=== PATIENT | female | born 1985 | race Caucasian/White ===

== ENCOUNTER → 2016-07-01 | Outpatient (CLI) | payer OTHER ==
[2016-07-01 12:46] LABS: BASO % 0.2 %; BASO ABS # 0.01 K/uL (0-0.2); COMPLETE YES; EOS % 1.3 %; IG% 0.2 %; LYMPH % 28.6 %; LYMPH ABS # 1.73 K/uL (1.2-3.4); MEAN CORPUSCULAR HGB CONC 35.6 g/dl (32-36); MEAN PLATELET VOLUME 10.2 fL (7.4-10.4); MONO % 7.9 %; NEUT % 61.8 %; PLATELET COUNT 232 K/uL (130-400); RED BLOOD COUNT 4.71 M/uL (4.2-5.4); WHITE BLOOD COUNT 6.04 K/uL (4.8-10.8)
[2016-07-01 13:30] LABS: ALT/SGPT 24 U/L (12-78); AST/SGOT 14 U/L (15-37); BLOOD UREA NITROGEN 13 mg/dl (7-18); BUN/CREATININE RATIO 15.5 (10-20); CALCIUM 9.2 mg/dl (8.5-10.1); CARBON DIOXIDE 28 mmol/L (21-32); CHLORIDE 106 mmol/L (98-107); CHOLESTEROL 140 mg/dl (0-200); CREATININE 0.85 mg/dl (0.60-1.20); GLUCOSE 78 mg/dl (70-99); POTASSIUM 3.8 mmol/L (3.5-5.1); SODIUM 141 mmol/L (136-145)
[2016-07-01 13:40] LABS: ALB/GLOB RATIO 1.1 (0.9-2); ALKALINE PHOSPHATASE 59 U/L (45-117); CHOLESTEROL/HDL RATIO 2.5; HDL CHOLESTEROL 56 mg/dl; LDL CHOLESTEROL CALCULATED 76 mg/dl; THYROID STIMULATING HORMONE 0.907 uIu/ml (0.300-4.500); TRIGLYCERIDES 38 mg/dl (0-150); VERY LOW DENSITY LIPOPROT CALC 8 mg/dl
== END | disposition home or self-care (01) ==
LOC: C.LABPBG 11:21
PROVIDERS: ATTEND Neuromusculoskeletal Medicine & OMM
DX: Z00.00 Encounter for general adult medical examination without abnormal findings (principal)

== ENCOUNTER → 2016-07-09 | Outpatient (CLI) | payer OTHER | END | disposition home or self-care (01) | LOC: C.PAPS 14:07 | PROVIDERS: ATTEND Physician Assistant | DX: Z12.4 Encounter for screening for malignant neoplasm of cervix (principal); R87.616 Satisfactory cervical smear but lacking transformation zone; Z87.42 Personal history of other diseases of the female genital tract ==

== ENCOUNTER → 2017-11-17 | Outpatient (CLI) | payer OTHER | END | disposition home or self-care (01) | LOC: C.LABSPEC 14:02 | PROVIDERS: ATTEND Neuromusculoskeletal Medicine & OMM | DX: R39.9 Unspecified symptoms and signs involving the genitourinary system (principal) ==

== ENCOUNTER 2019-06-09 03:55 | Inpatient (IN) ==
[2019-06-09] MEDS ORDERED: PENICILLIN G POTASSIUM 6 MU in DEXTROSE 5% 250 ML IV STA (04:22)
[2019-06-09] MEDS ORDERED: OXYTOCIN 30 UNITS/500 ML BAG IV PRN ×3 (04:22→22:14)
[2019-06-09 04:53] LABS: Hematocrit (blood only) 32.6 % (37-47); Hemoglobin 10.6 g/dL (12.0-16.0); Mean Corpuscular Hemoglobin 26.5 pg (25-34); Mean Corpuscular Volume 81.5 fL (80-100); Mean Platelet Volume 9.9 fL (7.4-10.4); Platelet Count 238 K/uL (130-400); RDW Standard Deviation 44.3 fL (36.4-46.3); White Blood Count 13.47 K/uL (4.8-10.8)
[2019-06-09 04:55] LABS: Mean Corpuscular Hgb Conc 32.5 g/dL (32-36)
--- NOTE | 2019-06-09 08:27 | Anesthesiology Consultation ---
Date of Service June 09, 2019 Assessment & Plan (1) Encounter for pre-operative examination: Chart Review Chart Review: Acceptable Risk for Labor Epidural History Height/Weight Height: 5 ft 3 in Weight: 84.822 kg Allergies Allergy/AdvReac Type Severity Reaction Status Date / Time No Known Drug Allergies Allergy NKA Verified 06/09/19 04:19 Medications Home Medications Medication Instructions Recorded Confirmed Last Taken prenat.vits,hugo,rns-rueg-jrcwk 1 tab PO DAILY 11/18/18 06/09/19 06/08/19 04:00 Past Medical History Medical History (Updated 06/09/19 @ 08:27 by Ward Torres MD) No significant medical problems Past Family History Family History Mother Anxiety Deep vein thrombosis Depression Father Asthma Gallbladder disease Silicosis Grandmother Heart disease Hypertension Osteoporosis Grandfather Hypertension Myocardial infarction Uncle Prostate cancer Aunt Pancreatic cancer Denies family history of Ovarian cancer Breast cancer Colorectal cancer Past Surgical History Surgical History History of oral surgery Hx of tonsillectomy Social History Smoking Status: Never smoker Hx Alcohol Use: No Hx Substance Use: No substance use type: does not use Physical Exam Vital Signs Last Vital Signs Temp 36.7 C 06/09/19 07:30 Pulse 83 06/09/19 07:30 Resp 20 06/09/19 07:30 BP 110/60 06/09/19 07:30 Testing Laboratory Results 06/09/19 04:37
--- NOTE | 2019-06-09 08:40 | History & Physical Report ---
Date of Service June 09, 2019 Assessment & Plan (1) Normal labor: IUP at term with PSPROM for possibly 18 hours. PCNG hsa been started patient requesting epidural now anticipate vaginal . History of Present Illness Primary Care Provider: NO PCP Patient is a 33 yo white female who presents at 39 weeks with leaking fluid off & on since about 10 am yesterday then began to have regular contractions 3- 5 minutes apart at 0200 last night. fluid has been clear. GBS(+) no fever or chills. baby has continued to be active. was otherwise uncomplicated. Allergies Allergy/AdvReac Type Severity Reaction Status Date / Time No Known Drug Allergies Allergy NKA Verified 06/09/19 04:19 Home Medications Home Medications Medication Instructions Recorded Confirmed Type prenat.vits,hugo,igi-pmte-hxdew 1 tab PO DAILY 11/18/18 06/09/19 History Patient History Medical History (Updated 06/09/19 @ 08:50 by Laura White MD, FACOG) No significant medical problems Surgical History History of oral surgery Hx of tonsillectomy Family History Mother Anxiety Deep vein thrombosis Depression Father Asthma Gallbladder disease Silicosis Grandmother Heart disease Hypertension Osteoporosis Grandfather Hypertension Myocardial infarction Uncle Prostate cancer Aunt Pancreatic cancer Denies family history of Ovarian cancer Breast cancer Colorectal cancer Social History (Updated 11/24/18 @ 15:13 by Arleen Adamson) Preferred Language: Luxembourger Communication Ability: Effective Beliefs That Will Affect Care: None marital status: Single Current Living Situation: Significant Other current occupational status: employed Other Information That Helps Us Care for You: No Feels Safe at Home: Yes Safety Concerns: Feels Safe At This Time Smoking Status: Never smoker Hx Alcohol Use: No Hx Substance Use: No Dental Care, Regularly: Yes Physical Activity Frequency: 3-4 Times per Week Review of Systems All systems reviewed & are unremarkable except as noted in HPI & below Physical Exam Constitutional: WD/WN, vitals as above Respiratory: normal respiratory effort, lungs clear to auscultation Cardiovascular: RRR, no murmur, no edema Gastrointestinal (Abdomen): normal bowel sounds, soft, nontender, no hepatosplenomegaly Psychiatric: A+Ox3, euthymic affect Genitourinary: OB Exam Abdomen: + vertex and + regular contractions Manual OB Exam: + cervical dilation 4 cm, + cervical effacement 100%, + station -1 and + amniotic fluid clear and nitrazine positive OB Exam Monitor Tracing: + external FHT monitor used, + external uterine monitor used, + category I and + normal FHT variability Results & Data Vital Signs (Past 12 Hours) Vital Signs Temp Pulse Resp BP 06/09/19 07:30 98.1 F 83 20 110/60 06/09/19 06:18 97.9 F 86 18 112/62 06/09/19 04:17 98.1 F 86 18 130/69 Coding Level of Care Code None Diagnoses Normal labor O80; Z37.9
[2019-06-09] MEDS: LACTATED RINGER'S 1,000 ML IV PRN ×2 (09:04→12:50)
[2019-06-09] MEDS: PENICILLIN G POTASSIUM 3 MU in DEXTROSE 5% 100 ML IV PRN ×3 (09:04→17:10)
[2019-06-09] MEDS ORDERED: CALCIUM CARBONATE 500 MG CHEWABLE TAB PO PRN (10:02)
[2019-06-09] MEDS ORDERED: BUPIVACAINE 0.25% 30 ML VIAL ONE (11:37)
[2019-06-09] MEDS ORDERED: fentaNYL citrate 100 MCG/2 ML VIAL ONE (11:37)
[2019-06-09] MEDS ORDERED: ePHEDrine sulfate 50 MG/ML AMP ONE (11:37)
[2019-06-09] MEDS ORDERED: fentaNYL 2MCG/ML ROPIV 1.25MG/ML 100 ML BAG EPI ONE (11:38)
--- NOTE | 2019-06-09 11:45 | Labor Progress Brief Note ---
Date of Service June 09, 2019 Subjective Feeling more discomfort with ctx. FHT Cat 1 [place] irreg. Cervix: 4100/-1 Patient would like epidural. Since she has not made cervix change since earlier exam, will start pitocin. She had initially wanted to avoid pitocin, but since she has not made change, she is agreeable. Results & Data Vital Signs (Past 12 Hours) Vital Signs Temp Pulse Resp BP 06/09/19 09:01 36.7 C 20 06/09/19 07:30 36.7 C 83 20 110/60 06/09/19 06:18 36.6 C 86 18 112/62 06/09/19 04:17 36.7 C 86 18 130/69 Coding Level of Care Code None
[2019-06-09] MEDS ORDERED: NALOXONE HCL 0.4 MG/1 ML VIAL/CARP IV PRN (12:33)
[2019-06-09] MEDS ORDERED: ONDANSETRON INJ 2 MG/ML 2 ML VIAL IV PRN ×2 (12:33→23:22)
[2019-06-09] MEDS ORDERED: NALOXONE HCL 1 MG in SODIUM CHLORIDE 0.9% 1000ML 1,000 ML IV PRN (12:33)
[2019-06-09] MEDS ORDERED: ePHEDrine sulfate 50 MG/ML AMP IV PRN (12:33)
[2019-06-09] MEDS ORDERED: fentaNYL 2MCG/ML ROPIV 1.25MG/ML 100 ML BAG EPI PRN (12:33)
--- NOTE | 2019-06-09 16:51 | Labor Progress Brief Note ---
Date of Service June 09, 2019 Subjective Starting to feel urge to have bowel movement with contractions. FHT Cat 1 [place] Q2 SVE 8/100 per RN. Continue to labor. Results & Data Vital Signs (Past 12 Hours) Vital Signs Temp Pulse Resp BP Pulse Ox 06/09/19 16:46 92 H 100 06/09/19 16:41 87 100 06/09/19 16:36 81 99 06/09/19 16:35 85 100/59 L 06/09/19 16:31 85 100 06/09/19 16:26 85 98 06/09/19 16:21 96 H 99 06/09/19 16:20 78 109/62 06/09/19 16:16 79 99 06/09/19 16:13 101 H 92 06/09/19 16:11 97 H 99 06/09/19 16:06 88 99 06/09/19 16:04 93 H 126/80 06/09/19 16:01 94 H 99 06/09/19 15:56 103 H 97 06/09/19 15:51 98 H 99 06/09/19 15:50 99 H 124/78 06/09/19 15:46 92 H 100 06/09/19 15:43 100 H 89 L 06/09/19 15:41 84 99 06/09/19 15:36 85 99 06/09/19 15:34 85 99/67 L 06/09/19 15:31 93 H 99 06/09/19 15:28 102 H 93 06/09/19 15:26 88 99 06/09/19 15:21 79 100 06/09/19 15:20 82 103/57 L 06/09/19 15:16 92 H 98 06/09/19 15:11 87 99 06/09/19 15:06 86 100 06/09/19 15:04 89 110/62 06/09/19 15:01 89 99 06/09/19 14:56 92 H 99 06/09/19 14:51 88 97 06/09/19 14:49 88 107/59 L 06/09/19 14:46 86 98 06/09/19 14:41 86 97 06/09/19 14:36 80 97 06/09/19 14:35 83 108/54 L 06/09/19 14:31 85 97 06/09/19 14:26 93 H 98 02/19/20 14:21 85 101/56 L 96 06/09/19 14:16 90 95 06/09/19 14:11 86 97 06/09/19 14:06 83 97 06/09/19 14:05 80 104/58 L 06/09/19 14:01 87 97 06/09/19 13:56 89 98 06/09/19 13:51 91 H 98 06/09/19 13:50 85 109/61 06/09/19 13:46 87 99 06/09/19 13:41 87 99 06/09/19 13:36 88 98 06/09/19 13:34 86 101/56 L 06/09/19 13:31 81 98 06/09/19 13:26 82 98 06/09/19 13:21 92 H 97 06/09/19 13:20 88 100/59 L 06/09/19 13:16 84 98 06/09/19 13:15 18 06/09/19 13:11 85 97 06/09/19 13:06 85 101/54 L 99 06/09/19 13:01 84 100 06/09/19 12:56 94 H 20 100 06/09/19 12:51 90 100 06/09/19 12:46 91 H 108/59 L 99 06/09/19 12:41 91 H 98 06/09/19 12:40 96 H 101/64 06/09/19 12:39 20 06/09/19 12:38 92 H 103/56 L 06/09/19 12:36 96 H 104/61 99 06/09/19 12:33 90 107/61 06/09/19 12:32 90 99/55 L 06/09/19 12:31 92 H 98 06/09/19 12:30 90 98/55 L 06/09/19 12:28 84 109/56 L 06/09/19 12:26 94 H 111/56 L 99 06/09/19 12:24 90 117/68 06/09/19 12:21 105 H 99 06/09/19 12:16 98 H 98 06/09/19 12:11 96 H 99 06/09/19 12:10 91 H 93 06/09/19 12:06 111 H 97 06/09/19 09:01 36.7 C 20 06/09/19 07:30 36.7 C 83 20 110/60 06/09/19 06:18 36.6 C 86 18 112/62 Coding Level of Care Code None
[2019-06-09] MEDS ORDERED: METHYLERGONOVINE MALEATE 0.2 MG/ML AMP ONE (20:42)
--- NOTE | 2019-06-09 21:02 | Anesthesia Procedure Note ---
Date of Service June 09, 2019 Anesthesia Post Epidural Note Vital Signs Vital Signs: Temp Pulse Resp BP Pulse Ox 36.8 C 96 H 18 131/61 99 06/09/19 19:00 06/09/19 20:56 06/09/19 19:00 06/09/19 20:50 06/09/19 20:56 Notes Mental Status: alert / awake / arousable and participated in evaluation Nausea / Vomiting: adequately controlled Pain: adequately controlled Airway Patency, RR, SpO2: stable & adequate BP & HR: stable & adequate Hydration State: stable & adequate Neuraxial Anesthesia: was administered and sensory block is resolving Anesthetic Complications: no major complications apparent Epidural: Removed without complications and With tip intact
--- NOTE | 2019-06-09 21:24 | Delivery Summary ---
Vaginal Delivery Summary Date of Service June 09, 2019 Vaginal Delivery Summary Vaginal Delivery Summary: Pre-delivery diagnoses: 33yo @ 39 2/7, PROM, GBS+, Rh negative Post-delivery diagnoses: same Procedure: spontaneous vaginal delivery Surgeon: Tanja Coates DO Complications: none Findings: Viable female . Apgars: 8/9. Weight pending, please see nursery records Estimated blood loss: Description of delivery: The patient progressed to complete with epidural anesthesia. She then began to push. She spontaneously vaginally delivered a viable from the cephalic presentation. The head delivered in ALICJA position. The anterior shoulder delivered, followed by the posterior shoulder, followed by the body. The baby was placed on mother's abdomen and a spontaneous cry was heard. The cord was doubly clamped and cut. Cord blood was obtained. The placenta was delivered spontaneously intact with a 3-vessel cord. The uterus and vagina were swept of clots and debris. IV pitocin was given. The uterus became firm. The cervix, vagina, and perineum were inspected and a partial 3rd degree lacerations was noted - did not tear through anal sphincter, but was partially (about 10% thickness) torn. A [id number] stitch of 3-0 Chromic was used to reapproximate the uppermost portion of the anal sphincter. The remaining laceration was reapproximated with 3-0 vicryl. Excellent hemostasis was observed. The mother and baby are recovering in stable and good condition in the room. Sponge, needle and instrument counts were correct x 2. Tanja Coates DO [facility] Vaginal Delivery Charge Vaginal Delivery Codes: 04794 global code for the antepartum, delivery, and post-
[2019-06-09] MEDS ORDERED: SUPERCREAM 0.870% 15 GM JAR EXT PRN (22:14)
[2019-06-09] MEDS ORDERED: HYDROCORTISONE ACETATE 25 MG SUPP PR PRN (22:14)
[2019-06-09] MEDS ORDERED: bisacodyL 10 MG SUPP PR PRN (22:14)
[2019-06-09] MEDS ORDERED: BENZOCAINE 20% AER SPR 82.5 GM CAN EXT PRN (22:14)
[2019-06-09] MEDS ORDERED: ACETAMINOPHEN 325 MG TAB PO PRN (22:14)
[2019-06-09] MEDS ORDERED: OXYCODONE/ACETAMINOPHEN 5mg/325mg TAB PO PRN (22:14)
[2019-06-09] MEDS ORDERED: ONDANSETRON INJ 2 MG/ML 2 ML VIAL ONE (23:23)
[2019-06-10] MEDS: IBUPROFEN 600 MG TAB PO PRN ×6 (00:01→22:09)
[2019-06-10 06:32] LABS: Hematocrit (blood only) 28.4 % (37-47); Hemoglobin 9.3 g/dL (12.0-16.0)
--- NOTE | 2019-06-10 06:42 | Obstetrical Progress Note ---
Date of Service <Joselo Duran DO - Last Filed: 06/10/19 06:41> June 10, 2019 Assessment & Plan <DO Maura Nunes Last Filed: 06/10/19 06:41> (1) : -PPD#1 -Vitals reviewed, WNL (Tmax 37.0) - GBS +, Blood Type B- - Clinically stable. - Feels well today. Eating well, voiding well, ambulating well. - Pain well controlled. - Routine post- care - After discharge will have [address] Coates. Day #:: 1 Subjective <Joselo Duran DO - Last Filed: 06/10/19 06:41> Ambulation: ambulating normally Voiding: no voiding problems Passing Gas:: No Diet Tolerance:: regular diet Lochia:: Moderate Feeding Type:: breast feeding Current Pain Level(1-10): 1 (improved with analgesics) Patient is a 33 PPD#1. Patient states that she is feeling well today and that her pain is well controlled. She has no other complaints at this time. Constitutional: no fever and no chills Respiratory: no cough, no dyspnea and no wheezing Cardiovascular: no chest pain, no dyspnea, no palpitations, no edema and no calf pain Breast: no breast pain Gastrointestinal: no abdominal pain, no nausea and no vomiting Genitourinary (female): no dysuria and no difficulty urinating Neurologic: no headache(s) Physical Exam <DO Maura Nunes Last Filed: 06/10/19 06:41> Constitutional WD/WN, vitals as above Respiratory normal respiratory effort, lungs clear to auscultation Cardiovascular Rate/Rhythm: regular rate and regular rhythm Heart Sounds: normal S1 and normal S2; no click, no gallop, no murmur and no cardiac rub Extremities: no calf tenderness and no edema Gastrointestinal (Abdomen) Inspection/Auscultation: abdomen normal to inspection and normal bowel sounds Percussion/Palpation: abdomen soft; abdomen nontender Genitourinary OB Exam Abdomen: + fundal height Fundus: + firm and + relation to umbilicus (1cm below); not tender and not boggy Results & Data <Joselo SmithnDO Lorenzo Last Filed: 06/10/19 06:41> Vital Signs (Past 12 Hours) Vital Signs Temp Pulse Pulse Resp BP BP Pulse Ox 06/09/19 23:55 36.7 C 93 H 18 108/68 20 23:04 93 H 119/67 20 22:49 99 H 114/63 0220 22:35 110 H 113/68 20 22:20 113 H 121/72 20 21:35 104 H 122/65 20 21:19 112 H 124/60 20 21:04 100 H 125/57 L 20 21:01 104 H 100 20 20:56 96 H 99 0220 20:51 96 H 99 20 20:50 99 H 131/61 20 20:46 99 H 99 0220 20:41 106 H 99 20 20:36 122 H 100 0220 20:31 118 H 98 20 20:28 119 H 84 L 20 20:26 100 H 100 20 20:22 104 H 154/63 H 88 L 20 20:21 98 H 96 0220 20:16 105 H 100 0220 20:11 93 H 100 0220 20:08 100 H 92 0220 20:06 108 H 115/63 100 0220 20:04 102 H 113/66 0220 20:01 97 H 100 0220 19:56 107 H 98 0220 19:51 106 H 99 0220 19:50 95 H 112/61 0220 19:46 99 H 99 0220 19:41 92 H 99 02/20 19:36 105 H 113/70 100 0220 19:31 102 H 99 0220 19:26 103 H 97 0220 19:21 107 H 98 0220 19:20 100 H 124/71 0220 19:16 102 H 98 02/20 19:11 111 H 99 0220 19:07 104 H 114/59 L 20 19:06 105 H 100 02/19/20 19:01 117 H 98 02/19/20 19:00 36.8 C 18 06/09/19 18:56 94 H 99 06/09/19 18:54 90 93 06/09/19 18:51 97 H 100 06/09/19 18:50 91 H 119/55 L 06/09/19 18:46 97 H 98 06/09/19 18:41 95 H 99 <Tanja Coates, - Last Filed: 06/10/19 07:23> Co-Signing Physician Notes Resident Physician Supervision Note: I interviewed and examined the patient. Discussed with Dr. Duran and agree with findings and plan as documented in the note. Any exceptions or clarifications are listed here: PPD#1 doing well. GBS+, anticipate discharge home tomorrow. Documented By: Tanja Coates DO Resident Activity Tracking <Joselo Duran DO - Last Filed: 06/10/19 06:41> Resident Involvement: Resident Care Provided Care Provided: OB Delivery
[2019-06-10] MEDS ORDERED: DIPHTHERIA/TETANUS/PERTUSSIS 0.5 ML SYR/VIAL IM ONE (09:00)
[2019-06-10] MEDS: DOCUSATE SODIUM 100 MG CAP PO SCH ×2 (09:08→21:02)
[2019-06-10] MEDS: PRENATAL VITAMIN 1 TAB PO SCH (09:08)
[2019-06-10] MEDS ORDERED: bisacodyL 5 MG TABEC PO SCH (20:00)
[2019-06-11] MEDS: IBUPROFEN 600 MG TAB PO PRN ×3 (03:53→13:22)
--- NOTE | 2019-06-11 06:33 | Obstetrical Progress Note ---
Date of Service <Joselo Duran DO - Last Filed: 06/11/19 06:33> June 11, 2019 Assessment & Plan <DO Maura Nunes Last Filed: 06/11/19 06:33> (1) : -PPD#2 -Vitals reviewed, WNL (Tmax 36.7) - GBS +, Blood Type B- - Clinically stable. - Feels well today. Eating well, voiding well, ambulating well. - Pain well controlled. - Routine post- care - After discharge will have [address] Coates. Day #:: 2 Subjective <Joselo Duran DO - Last Filed: 06/11/19 06:33> Ambulation: ambulating normally Voiding: no voiding problems Passing Gas:: Yes Diet Tolerance:: regular diet Lochia:: Moderate Feeding Type:: breast feeding Current Pain Level(1-10): 1 (improved with analgesics) Patient is a 33 PPD#2. Patient states that she is feeling well today and that her pain is well controlled. She has no other complaints at this time. Constitutional: no fever and no chills Respiratory: no cough, no dyspnea and no wheezing Cardiovascular: no chest pain, no dyspnea, no palpitations, no edema and no calf pain Breast: no breast pain Gastrointestinal: no abdominal pain, no nausea and no vomiting Genitourinary (female): no dysuria and no difficulty urinating Neurologic: no headache(s) Physical Exam <DO Maura Nunes Last Filed: 06/11/19 06:33> Constitutional WD/WN, vitals as above Respiratory normal respiratory effort, lungs clear to auscultation Cardiovascular Rate/Rhythm: regular rate and regular rhythm Heart Sounds: normal S1 and normal S2; no click, no gallop, no murmur and no cardiac rub Extremities: + edema (+1); no calf tenderness Gastrointestinal (Abdomen) Inspection/Auscultation: abdomen normal to inspection and normal bowel sounds Percussion/Palpation: abdomen soft; abdomen nontender Genitourinary OB Exam Abdomen: + fundal height Fundus: + firm and + relation to umbilicus (3cm below); not tender and not boggy Results & Data <DO Maura Nunes Last Filed: 06/11/19 06:33> Vital Signs (Past 12 Hours) Vital Signs Temp Pulse Resp BP Pulse Ox 06/10/19 23:30 36.3 C L 83 18 97/59 L 99 06/10/19 19:50 36.7 C 97 H 16 101/64 97 <Lexx Talamantes MD, FACOG - Last Filed: 06/11/19 07:17> Co-Signing Physician Notes Resident Physician Supervision Note: I was present with Dr. Duran during the history and exam. I discussed the case with the resident and agree with the findings and plan as documented in the note. Any exceptions or clarifications are listed here: [None] Documented By: Lexx Talamantes MD, FACOG Resident Activity Tracking <Joselo Duran DO - Last Filed: 06/11/19 06:33> Resident Involvement: Resident Care Provided Care Provided: OB Delivery
[2019-06-11] MEDS: DOCUSATE SODIUM 100 MG CAP PO SCH (08:32)
[2019-06-11] MEDS: PRENATAL VITAMIN 1 TAB PO SCH (08:32)
== END 2019-06-11 18:25 | disposition home or self-care (01) | DRG 768 ==
LOC: OPB 03:55 → 4S1 04:01 → 4S2 23:45

== ENCOUNTER 2021-11-22 20:14 | Inpatient (IN) ==
[2021-11-22] MEDS ORDERED: OXYTOCIN 30 UNITS/500 ML BAG IV PRN ×2 (21:11)
--- NOTE | 2021-11-22 21:11 | Labor Progress Brief Note ---
Date of Service November 22, 2021 Subjective SROM at home this evening at 1800 Assessment & Plan (1) Normal labor: Plan: Admit, pitocin for PROM as patient not having any pain with contractions nor any discernable pattern. Epidural on demand. GBS neg. Physical Exam Genitourinary: /-2 ROM clear FHT Cat 1 [place] irregular Results & Data ([facility]) Vital Signs (Past 12 Hours) Vital Signs Temp Resp 11/22/21 20:34 98.2 F 18 Coding Level of Care Code None Diagnoses Normal labor O80; Z37.9
[2021-11-22 21:35] LABS: Hematocrit (blood only) 33.4 % (34.1-44.9); Hemoglobin 10.8 g/dl (12.0-16.0); Mean Corpuscular Hemoglobin 25.9 pg (25.0-34.0); Mean Corpuscular Hgb Conc 32.3 g/dL (32.0-36.0); Mean Corpuscular Volume 80.1 fL (80.0-100.0); Mean Platelet Volume 10.4 fL (9.4-12.3); Platelet Count 202 K/uL (130-400); RDW Standard Deviation 43.1 fL (36.4-46.3); Red Blood Count 4.17 M/uL (3.93-5.22); White Blood Count 10.29 K/ul (4.8-10.8)
[2021-11-22] MEDS: LACTATED RINGER'S 1,000 ML IV PRN (22:10)
[2021-11-23] MEDS ORDERED: ePHEDrine sulfate 50 MG/ML AMP ONE (03:46)
[2021-11-23] MEDS ORDERED: fentaNYL 2MCG/ML ROPIVACAINE 1.25MG/ML 100 ML BAG EPI ONE (03:47)
[2021-11-23] MEDS ORDERED: BUPIVACAINE 0.25% 30 ML VIAL ONE (03:47)
[2021-11-23] MEDS ORDERED: SODIUM CHLORIDE 0.9% INJ 10 ML VIAL ONE (03:47)
[2021-11-23] MEDS ORDERED: LIDOCAINE 2%/EPINEPHRINE 1:200,000 20 ML SDV ONE (03:47)
[2021-11-23] MEDS ORDERED: fentaNYL citrate 100 MCG/2 ML VIAL ONE (03:47)
--- NOTE | 2021-11-23 03:58 | Anesthesiology Consultation ---
Date of Service November 23, 2021 Assessment & Plan (1) Encounter for pre-operative examination: Chart Review Chart Review: Acceptable Risk for Labor Epidural Consults Requested none ASA ASA2 Proposed Anesthesia Anesthesia Type: Labor Epidural Risk / Benefits Reviewed With: PT / POA / Parent / Guardian, Accepts Plan and Informed Consent Obtained History Height/Weight Height: 5 ft 3 in Weight: 89.811 kg Allergies Allergy/AdvReac Type Severity Reaction Status Date / Time No Known Drug Allergies Allergy NKA Verified 11/19/21 07:54 Medications Home Medications Medication Instructions Recorded Confirmed Last Taken prenat.vits,hugo,tct-rruc-olyak 1 tab PO DAILY 11/18/18 11/22/21 06/08/19 04:00 cetirizine 10 mg capsule (Zyrtec) 10 mg PO DAILY PRN Allergies 09/18/21 11/22/21 Unknown Active Medications Generic Name Dose Route Start Last Admin Trade Name Freq PRN Reason Stop Dose Admin Oxytocin 30 units in 500 mls @ 5 mls/hr 11/22/21 21:11 11/23/21 00:00 Pitocin IV 11/24/21 21:10 0.3 units/hr .Q24H PRN 5 mls/hr Labor Induction/Augmentation Titration Protocol 0.3 UNITS/HR Lactated Ringer's 1,000 mls @ 125 mls/hr 11/22/21 21:11 11/22/21 22:10 Lr IV 11/24/21 21:10 125 mls/hr .Q8H PRN Administration L&D Protocol Protocol Past Medical History Medical History Seasonal allergies Exercise / Class Metabolic Activity II 4-5 Yardwork/Stairs/Walk up hill Past Family History Family History Mother Anxiety Deep vein thrombosis Depression Father Asthma Gallbladder disease Silicosis Grandmother Heart disease Hypertension Osteoporosis Grandfather Hypertension Myocardial infarction Uncle Prostate cancer Aunt Pancreatic cancer Denies family history of Ovarian cancer Breast cancer Colorectal cancer Past Surgical History Surgical History Hx of tonsillectomy [place] teeth extracted Past Anesthesia History No Hx of Anesthesia Complications and No Family Hx of Anesthesia Complications History of PONV No Hx of PONV and No Hx of Motion Sickness Social History Smoking Status: Never smoker Hx Alcohol Use: No Hx Substance Use: No substance use type: does not use Physical Exam Vital Signs Last Vital Signs Temp 97.9 F 11/23/21 02:08 Pulse 77 11/23/21 03:16 Resp 18 11/23/21 02:08 BP 121/71 11/23/21 03:16 ENMT Mouth: no dentition abnormality Thyromental Distance: > or= 3.5 Finger Breadths Mallampati Class: II Neck normal visual inspection Respiratory normal respiratory effort Auscultation: lungs clear to auscultation bilaterally Cardiovascular Rate/Rhythm: regular rate and regular rhythm Testing Laboratory Results 11/22/21 21:21 Blood Type B Negative 11/22/21 21:21 Blood Type Cancelled 11/22/21 21:21 Antibody Screen Cancelled 11/22/21 21:21 Antibody Screen NEGATIVE 11/22/21 21:21
[2021-11-23] MEDS ORDERED: fentaNYL 2MCG/ML ROPIVACAINE 1.25MG/ML 100 ML BAG EPI PRN (04:14)
[2021-11-23] MEDS ORDERED: NALBUPHINE HCL INJ 10 MG/ML AMP IV PRN (04:14)
[2021-11-23] MEDS ORDERED: diphenhydrAMINE 50 MG/ML VIAL IV PRN (04:14)
[2021-11-23] MEDS ORDERED: NALOXONE HCL 1 MG in SODIUM CHLORIDE 0.9% 1000ML 1,000 ML IV PRN (04:14)
[2021-11-23] MEDS ORDERED: ePHEDrine sulfate 50 MG/ML AMP IV PRN (04:14)
[2021-11-23] MEDS ORDERED: NALOXONE HCL 0.4 MG/1 ML VIAL/CARP IV PRN (04:14)
[2021-11-23] MEDS ORDERED: ONDANSETRON INJ 2 MG/ML 2 ML VIAL IV PRN (04:14)
[2021-11-23] MEDS: LACTATED RINGER'S 1,000 ML IV PRN ×2 (04:16→10:58)
[2021-11-23] MEDS ORDERED: NURSING L&D Epidural Breakthrough Pain Update ONE (06:43)
--- NOTE | 2021-11-23 07:01 | Labor Progress Brief Note ---
Date of Service November 23, 2021 Subjective RN reports patient is comfortable with epidural. Assessment & Plan (1) PROM (premature rupture of membranes): Plan: Patient was scheduled for IOL today. However, she experienced PROM last night shortly before she was supposed to present to hospital for mclain bulb placement. ROM was confirmed on arrival to L&D, and the patient was 3cm but not brandi, so IOL was begun at that point with pitocin. She has since been provided with an epidural. Continue current mgmt. Admission and Anticipated Discharge Date Admission Date: November 22, 2021 Physical Exam Genitourinary: RN examined patient shortly before MD arrived on unit, so this MD did not repeat exam and accepts RN report. Patient was found to be 5cm/100/-2 per RN Forr. LOF clear continues Pitocin running [place] Q2min FHT Cat 1 Results & Data ([facility]) Vital Signs (Past 12 Hours) Vital Signs Temp Pulse Resp BP Pulse Ox 11/23/21 06:57 86 138/67 11/23/21 06:55 85 95 11/23/21 06:50 86 94 11/23/21 06:45 84 94 11/23/21 06:42 87 118/75 11/23/21 06:40 88 97 11/23/21 06:35 83 96 11/23/21 06:30 79 96 11/23/21 06:27 75 109/62 11/23/21 06:25 77 98 11/23/21 06:20 86 97 11/23/21 06:15 71 97 11/23/21 06:12 80 120/76 11/23/21 06:10 82 99 11/23/21 06:05 79 95 11/23/21 06:00 86 94 11/23/21 05:58 106 H 117/77 11/23/21 05:55 92 H 97 11/23/21 05:50 85 94 11/23/21 05:45 82 97 11/23/21 05:42 82 114/55 L 11/23/21 05:40 84 95 11/23/21 05:35 83 94 11/23/21 05:30 83 94 11/23/21 05:26 81 108/59 L 11/23/21 05:25 79 95 11/23/21 05:20 79 93 11/23/21 05:15 82 93 11/23/21 05:11 80 104/58 L 11/23/21 05:10 83 93 11/23/21 05:05 82 94 11/23/21 05:00 77 94 11/23/21 04:57 73 94 11/23/21 04:56 72 110/57 L 11/23/21 04:55 74 94 11/23/21 04:50 89 95 11/23/21 04:45 78 95 11/23/21 04:43 75 106/57 L 11/23/21 04:40 73 95 11/23/21 04:35 89 97 11/23/21 04:30 97.7 F 84 18 97 11/23/21 04:28 72 99/52 L 11/23/21 04:25 80 97 11/23/21 04:23 81 107/59 L 11/23/21 04:20 97 11/23/21 04:20 81 11/23/21 04:20 80 114/57 L 11/23/21 04:17 76 114/54 L 11/23/21 04:15 74 124/55 L 99 11/23/21 04:11 74 11/23/21 04:10 71 100 11/23/21 04:11 72 132/67 91 11/23/21 04:08 72 118/80 11/23/21 04:05 80 114/75 100 11/23/21 04:02 78 121/71 11/23/21 04:00 78 100 11/23/21 03:16 77 121/71 11/23/21 02:45 71 101/56 L 11/23/21 02:15 73 113/69 11/23/21 02:08 18 11/23/21 02:08 97.9 F 18 11/23/21 01:45 71 111/60 11/23/21 01:15 75 110/59 L 11/23/21 00:45 75 105/59 L 11/23/21 00:15 81 110/58 L 11/23/21 00:00 18 11/23/21 00:00 98.2 F 18 11/22/21 23:46 82 110/68 11/22/21 23:16 88 106/59 L 11/22/21 22:45 79 108/67 11/22/21 22:15 84 110/61 11/22/21 20:34 98.2 F 18 Coding Level of Care Code None Diagnoses PROM (premature rupture of membranes) O42.90
--- NOTE | 2021-11-23 08:44 | Labor Progress Brief Note ---
Date of Service November 23, 2021 Subjective Comfortable with epidural. FHT Cat 1 [place] Q2 SVE 6/100/-1 Continue labor. Assessment & Plan Admission and Anticipated Discharge Date Admission Date: November 22, 2021 Results & Data ([facility]) Vital Signs (Past 12 Hours) Vital Signs Temp Pulse Resp BP Pulse Ox 11/23/21 08:40 93 H 11/23/21 08:35 71 92 11/23/21 08:30 72 94 11/23/21 08:28 67 122/72 11/23/21 08:25 75 92 11/23/21 08:20 73 93 11/23/21 08:15 69 93 11/23/21 08:12 70 121/68 11/23/21 08:10 69 93 11/23/21 08:05 71 93 11/23/21 08:00 74 93 11/23/21 07:57 72 118/69 11/23/21 07:55 70 93 11/23/21 07:50 72 93 11/23/21 07:45 72 95 11/23/21 07:41 73 116/71 11/23/21 07:40 75 94 11/23/21 07:35 74 94 11/23/21 07:30 78 93 11/23/21 07:27 75 113/70 11/23/21 07:25 78 93 11/23/21 07:20 82 95 11/23/21 07:15 79 94 11/23/21 07:12 83 117/69 11/23/21 07:10 84 95 11/23/21 07:05 87 95 11/23/21 07:00 80 94 11/23/21 06:57 36.7 C 86 20 138/67 11/23/21 06:55 85 95 11/23/21 06:50 86 94 11/23/21 06:45 84 94 11/23/21 06:42 87 118/75 11/23/21 06:40 88 97 11/23/21 06:35 83 96 11/23/21 06:30 79 96 11/23/21 06:27 75 109/62 11/23/21 06:25 77 98 11/23/21 06:20 86 97 11/23/21 06:15 71 97 11/23/21 06:12 80 120/76 11/23/21 06:10 82 99 11/23/21 06:05 79 95 11/23/21 06:00 86 94 11/23/21 05:58 106 H 117/77 11/23/21 05:55 92 H 97 11/23/21 05:50 85 94 11/23/21 05:45 82 97 11/23/21 05:42 82 114/55 L 11/23/21 05:40 84 95 11/23/21 05:35 83 94 11/23/21 05:30 83 94 11/23/21 05:26 81 108/59 L 11/23/21 05:25 79 95 11/23/21 05:20 79 93 11/23/21 05:15 82 93 11/23/21 05:11 80 104/58 L 11/23/21 05:10 83 93 11/23/21 05:05 82 94 11/23/21 05:00 77 94 11/23/21 04:57 73 94 11/23/21 04:56 72 110/57 L 11/23/21 04:55 74 94 11/23/21 04:50 89 95 11/23/21 04:45 78 95 11/23/21 04:43 75 106/57 L 11/23/21 04:40 73 95 11/23/21 04:35 89 97 11/23/21 04:30 36.5 C 84 18 97 11/23/21 04:28 72 99/52 L 11/23/21 04:25 80 97 11/23/21 04:23 81 107/59 L 11/23/21 04:20 97 11/23/21 04:20 81 11/23/21 04:20 80 114/57 L 11/23/21 04:17 76 114/54 L 11/23/21 04:15 74 124/55 L 99 11/23/21 04:11 74 11/23/21 04:10 71 100 11/23/21 04:11 72 132/67 91 11/23/21 04:08 72 118/80 11/23/21 04:05 80 114/75 100 11/23/21 04:02 78 121/71 11/23/21 04:00 78 100 11/23/21 03:16 77 121/71 11/23/21 02:45 71 101/56 L 11/23/21 02:15 73 113/69 08/05/22 02:08 18 11/23/21 02:08 36.6 C 18 11/23/21 01:45 71 111/60 11/23/21 01:15 75 110/59 L 11/23/21 00:45 75 105/59 L 11/23/21 00:15 81 110/58 L 11/23/21 00:00 18 11/23/21 00:00 36.8 C 18 11/22/21 23:46 82 110/68 11/22/21 23:16 88 106/59 L 11/22/21 22:45 79 108/67 11/22/21 22:15 84 110/61 Coding Level of Care Code None
--- NOTE | 2021-11-23 09:26 | Communication Note ---
Date of Service: November 23, 2021 Epidural redosed. Note written on patient's epidural record.
[2021-11-23] MEDS ORDERED: METHYLERGONOVINE MALEATE 0.2 MG/ML AMP ONE (12:35)
[2021-11-23] MEDS ORDERED: miSOPROStoL 200 MCG TAB ONE (12:41)
[2021-11-23] MEDS ORDERED: DIPHTHERIA/TETANUS/PERTUSSIS 0.5 ML SYR/VIAL IM ONE (13:10)
[2021-11-23] MEDS ORDERED: HYDROCORTISONE ACETATE 25 MG SUPP PR PRN (13:10)
[2021-11-23] MEDS ORDERED: OXYTOCIN 30 UNITS/500 ML BAG IV PRN (13:10)
[2021-11-23] MEDS ORDERED: ACETAMINOPHEN 325 MG TAB PO PRN (13:10)
[2021-11-23] MEDS ORDERED: BENZOCAINE 20% AER SPR 82.5 GM CAN EXT PRN (13:10)
[2021-11-23] MEDS ORDERED: bisacodyL 10 MG SUPP PR PRN (13:10)
--- NOTE | 2021-11-23 13:34 | Anesthesia Procedure Note ---
Date of Service November 23, 2021 Anesthesia Post Epidural Note Vital Signs Vital Signs: Temp Pulse Resp BP Pulse Ox 36.7 C 82 20 110/54 L 87 L 11/23/21 08:58 11/23/21 13:12 11/23/21 08:58 11/23/21 13:12 11/23/21 12:21 Pain Intensity Lower Back: Pain Intensity: 0 Notes Mental Status: alert / awake / arousable and participated in evaluation Nausea / Vomiting: adequately controlled Pain: adequately controlled Airway Patency, RR, SpO2: stable & adequate BP & HR: stable & adequate Hydration State: stable & adequate Neuraxial Anesthesia: was administered and sensory block is resolving Anesthetic Complications: no major complications apparent and Pt Satisfied with anesthetic care Epidural: Removed without complications and With tip intact
--- NOTE | 2021-11-23 13:57 | Delivery Summary ---
Vaginal Delivery Summary Date of Service November 23, 2021 Vaginal Delivery Summary and 3rd Degree LAC Patient is a 36-year-old 2 para 1-0-0-1 female EDC of 11/25/2021 who presented with spontaneous rupture of membranes but no contractions. She had been scheduled for induction today. Pitocin augmentation of her labor was begun and she received at epidural analgesia which was effective. She progressed to full dilation and pushed effectively over intact perineum. After the head was delivered a loose nuchal cord was reduced. There is a significant shoulder dystocia present which was resolved with hyperflexion of the hips and corkscrew maneuver. After the anterior shoulder was delivered the rest of the infant was delivered easily and placed on the mother's abdomen for further attention and drying. After 1 minute the cord was clamped and cut. The infant was grunting but did cry spontaneously after delivery. The nursery team then took him to the warming bed in the room for further attention and evaluation. The placenta was expressed intact with a three-vessel cord. bleeding was controlled with dilute Pitocin however bleeding continued to be moderate. She was given 1 dose of IM Methergine and 800 mcg of Cytotec rectally. At this point bleeding was satisfactory. A 3rd degree laceration was repaired in the standard fashion with 2-0 Vicryl and 3-0 chromic. Rectal exam post repair revealed no stitches in the mucosa and rectal mucosa was intact. Estimated blood loss was 600 cc. Mother and were then doing well after delivery. [facility] Vaginal Delivery Charge Delivery Type Details: and 3rd Degree LAC
[2021-11-23] MEDS: IBUPROFEN 600 MG TAB PO PRN ×2 (16:46→20:45)
[2021-11-23] MEDS: DOCUSATE SODIUM 100 MG CAP PO SCH (20:45)
[2021-11-24] MEDS: IBUPROFEN 600 MG TAB PO PRN ×3 (00:26→10:17)
--- NOTE | 2021-11-24 05:56 | Obstetrical Progress Note ---
Date of Service <Comfort Leavitthaylieshahida - Last Filed: 11/24/21 06:38> November 24, 2021 Assessment & Plan <Comfort Ortiz - Last Filed: 11/24/21 06:38> (1) state: Patient is PPD 1 s/p and doing well. - Eating well, voiding well, ambulating well - Vitals reviewed and within normal limits - Pain well controlled with ibuprofen 600 mg Q4H PRN - Blood type: B-, GBS neg, rubella immune - Plan to discharge today pending status of baby - After discharge, 6 [address] follow up with Dr. Nascimento <Laura White MD, FACOG - Last Filed: 11/24/21 07:27> (1) state: Subjective <Comfort Ortiz - Last Filed: 11/24/21 06:38> Patient is a 36 yo female who is now PPD #1 following spontaneous vaginal delivery at 39 weeks. Reports feeling well this morning. She endorses abdominal cramping while breast feeding and 3/10 pain well managed on analgesics. Voiding well. Tolerating regular meals overnight and able to ambulate some. She has passed gas but no bowel movements. Persistent lochia with some improvement this morning. Currently breast feeding. Review of Systems Denies fever, chills, sweats. Denies SOB, difficulty breathing, chest pain, palpitations, and chest pressure. Denies dizziness or lightheadedness. Denies breast pain. Denies dysuria. Denies headache or changes in vision. Physical Exam <Comfort Leavittsylvie - Last Filed: 11/24/21 06:38> General: Alert and oriented. No acute distress. CV: Regular rate and rhythm. No murmurs. Respiratory: CTA bilaterally. No rhonchi, wheezes, or crackles. No increased work of breathing. Abdomen: Positive bowel sounds. Soft, nontender, non distended. Uterus: Fundus firm and palpable 3 cm below the umbilicus. Lower extremities: No LE edema. No deep calf pain. García's negative bilaterally. Results & Data ([facility]) <Comfort SteinbergKalia Ortiz DO - Last Filed: 11/24/21 06:38> Vital Signs (Past 12 Hours) Vital Signs Temp Pulse Resp BP 11/24/21 04:00 36.9 C 88 18 104/54 L 11/24/21 00:30 36.5 C 84 18 95/53 L 11/23/21 19:55 37.1 C 106 H 18 109/69 <Laura White MD, FACOG - Last Filed: 11/24/21 07:27> Co-Signing Physician Notes Resident Physician Supervision Note: I interviewed and examined the patient. Discussed with Dr. Ortiz and agree with findings and plan as documented in the note. Any exceptions or clarifications are listed here: [None] Documented By: Laura White MD, FACOG Resident Activity Tracking <Comfort Ortiz DO - Last Filed: 11/24/21 06:38> Resident Involvement: Resident Care Provided Care Provided: OB Delivery
[2021-11-24 06:51] LABS: Hematocrit (blood only) 25.5 % (34.1-44.9); Hemoglobin 8.1 g/dl (12.0-16.0); Mean Corpuscular Hemoglobin 26.2 pg (25.0-34.0); Mean Corpuscular Hgb Conc 31.8 g/dL (32.0-36.0); Mean Corpuscular Volume 82.5 fL (80.0-100.0); Mean Platelet Volume 10.8 fL (9.4-12.3); Platelet Count 172 K/uL (130-400); RDW Coefficient of Variation 15.2 % (11.5-14.5); RDW Standard Deviation 45.1 fL (36.4-46.3); Red Blood Count 3.09 M/uL (3.93-5.22); White Blood Count 13.49 K/ul (4.8-10.8)
[2021-11-24] MEDS ORDERED: PRENATAL VITAMIN 1 TAB PO SCH (08:00)
[2021-11-24] MEDS: DOCUSATE SODIUM 100 MG CAP PO SCH (08:04)
[2021-11-24] MEDS ORDERED: bisacodyL 5 MG TABEC PO SCH (20:00)
== END 2021-11-24 15:30 | disposition home or self-care (01) | DRG 768 ==
LOC: OPB 20:14 → 4S1 20:15 → 4E2 11-23 17:54